=== PATIENT | female | born 1970 | race Caucasian/White ===

== ENCOUNTER 2021-10-05 04:11 | Emergency (ER) | payer BC ==
[2021-10-05 04:47] LABS: HEMOGLOBIN 14.6 gm/dl (12.3-15.3); RED BLOOD COUNT 4.78 M/UL (4.00-5.10); WHITE BLOOD COUNT 4.8 K/UL (4.5-11.0)
[2021-10-05 05:08] LABS: BUN/CREATININE RATIO 9 (0-10)
[2021-10-05] MEDS ORDERED: ASPIRIN CHEWABL81 MG PO (09:52)
[2021-10-05] MEDS ORDERED: NITROSTAT0.4 MG SL (09:52)
== END 2021-10-05 10:34 | disposition home or self-care (01) ==
LOC: ER1 04:11
PROVIDERS: Family Medicine
DX: R07.9 Chest pain, unspecified (principal); E78.5 Hyperlipidemia, unspecified
CPT/HCPCS: 71045; 80053; 82550; 82553; 83874; 84484; 85025; 93005; 99284